=== PATIENT | male | born 1980 | race African-American/Black ===

== ENCOUNTER 2016-08-28 02:18 | Emergency (ER) | payer SELFPAY ==
[2016-08-28] MEDS ORDERED: DEXAMETHASONE SOD PHOS INJ 10 MG/1 ML VIAL IM ONE (04:12)
[2016-08-28] MEDS ORDERED: LISINOPRIL 10 MG TABLET PO ONE (04:13)
[2016-08-28] MEDS ORDERED: HYDROCHLOROTHIAZIDE 25 MG TABLET PO ONE (04:13)
--- NOTE | 2016-08-28 04:17 | ER Document Report ---
ED General - General Chief Complaint: Flu Symptoms Stated Complaint: HEADACHE Notes: Patient is a pleasant 36-year-old male who presents with complaint of nasal congestion, cough, sinus pressure. He says it's been ongoing for the most a week. He does have history of seasonal allergies and does take Claritin for this. He's had some chills but has not had a fever home. Vomiting or diarrhea. No history diabetes. Patient does have history of hypertension. He just switched to a new doctor. He has ran out of his blood pressure medications for last month. He is on lisinopril and hydrochlorothiazide. Lisinopril is 10 mg. No chest pain. No abdominal pain. No other complaints at this time. TRAVEL OUTSIDE OF THE [place] IN LAST 30 DAYS: No - Related Data Allergies/Adverse Reactions: Penicillins Allergy (Severe, Verified 02/10/14 11:51) Anaphylaxis Past Medical History - Social History Smoking Status: Never Smoker Chew tobacco use (# tins/day): No Frequency of alcohol use: Occasional Drug Abuse: None Family History: Reviewed & Not Pertinent Patient has suicidal ideation: No Patient has homicidal ideation: No - Past Medical History Cardiac Medical History: Reports: Hx Hypertension Denies: Hx Coronary Artery Disease, Hx Heart Attack Pulmonary Medical History: Reports: Hx Asthma Denies: Hx Bronchitis, Hx COPD, Hx Pneumonia Neurological Medical History: Denies: Hx Cerebrovascular Accident, Hx Seizures Renal/ Medical History: Denies: Hx Peritoneal Dialysis Musculoskeltal Medical History: Denies Hx Arthritis Past Surgical History: Reports: Hx Testicular Surgery, Hx Tonsillectomy - Immunizations Immunizations up to date: Yes Hx Diphtheria, Pertussis, Tetanus Vaccination: Yes Review of Systems - Review of Systems Notes: My Normal Review Basic REVIEW OF SYSTEMS: CONSTITUTIONAL : Denies fever, chills, or sweats. Denies recent illness. EENT: Nasal congestion. CARDIOVASCULAR: Denies chest pain. RESPIRATORY: Cough GASTROINTESTINAL: Denies abdominal pain. Denies nausea, vomiting, or diarrhea. Denies constipation. Last BM: MUSCULOSKELETAL: Denies neck or back pain or joint pain or swelling. SKIN: Denies rash or skin lesions.. NEUROLOGICAL: Denies altered mental status or loss of consciousness. Has a sinus headache. Denies weakness or paralysis or loss of use of either side. Denies problems with gait or speech. Denies sensory or motor loss. ALL OTHER SYSTEMS REVIEWED AND NEGATIVE. Physical Exam - Vital signs Vitals: Temp Pulse Resp BP Pulse Ox 98.2 F 80 18 162/101 H 96 08/28/16 02:08/28/16 02:08/28/16 02:08/28/16 02:08/28/16 02:29 - Notes Notes: General Appearance: Well nourished, alert, cooperative, no acute distress, no obvious discomfort. Well-appearing. Audible nasal congestion during exam. Vitals: reviewed, See vital signs table. Head: no swelling or tenderness to the head Eyes: PERRL, EOMI, Conjuctiva clear Mouth: No decreasd moisture Throat: No tonsillar inflammation, No airway obstruction, No lymphadenopathy Ears: Normal appearing Tympanic membranes bilaterally. Neck: Supple, no neck tenderness Lungs: No wheezing, No rales, No rhonci, No accessory muscle use, good air exchange bilaterally. Heart: Normal rate, Regular rythm, No murmur, no rub Abdomen: Normal BS, soft, No rigidity, No abdominal tenderness, No guarding, no rebound, no abdominal masses, no organomegaly Extremities: strength 5/5 in all extremities, good pulses in all extremities, no swelling or tenderness in the extremities, no edema. Skin: warm, dry, appropriate color, no rash Neuro: speech clear, oriented x 3, normal affect, responds appropriately to questions. Course - Vital Signs Vital signs: Temp Pulse Resp BP Pulse Ox 98.2 F 80 18 162/101 H 96 08/28/16 02:08/28/16 02:08/28/16 02:08/28/16 02:08/28/16 02:29 - Transfer of Care Notes: 08/28/16 04:21 Patient will be discharged home. He looks well. I will give him a shot of Decadron hopefully help with his congestion and sinus pressure. He is already on [id number] nasal decongestants. I will place him back on his high blood pressure medication. His lung clemente are clear. His vital signs are normal with exception of his hypertension. I feel he is safe to be discharged home. I encouraged him follow closely with his primary care doctor for evaluation. I encourage him to return to ER if has worsening of his symptoms. Patient agrees with plan will be discharged home. Dictation of this chart was performed using voice recognition software; therefore, there may be some unintended grammatical errors. Discharge - Discharge Clinical Impression: URI (upper respiratory infection) Qualifiers: URI type: unspecified URI Qualified Code(s): J06.9 - Acute upper respiratory infection, unspecified Hypertension Qualifiers: Hypertension type: essential hypertension Qualified Code(s): I10 - Essential ( primary) hypertension Condition: Good Disposition: HOME, SELF-CARE Additional Instructions: Please try inhaling steam at home. This will help break up congestion. We have given you a shot of steroids which usually will help with the inflammation and congestion in your sinuses. Please return to ER immediately if you have difficulty breathing, fevers, or feel that your symptoms are worsening. Forms: Special Work Note
[2016-08-28 04:34] VITALS: BP 158/114
== END 2016-08-28 04:34 | disposition home or self-care (01) ==
LOC: ER 02:18
DX: J06.9 Acute upper respiratory infection, unspecified (principal); I10 Essential (primary) hypertension; R51 Headache; R09.81 Nasal congestion; Z88.0 Allergy status to penicillin
CPT/HCPCS: 99283; 96372; 87804; J1100

== ENCOUNTER 2018-04-27 19:59 | Emergency (ER) | payer SELFPAY ==
[2018-04-27 20:12] VITALS: BP 178/103
[2018-04-27] MEDS ORDERED: HYDROCHLOROTHIAZIDE 12.5 MG TABLET PO ONE (21:03)
[2018-04-27] MEDS ORDERED: LISINOPRIL 10 MG TABLET PO ONE (21:03)
--- NOTE | 2018-04-27 21:05 | ER Document Report ---
ED ENT - General Chief Complaint: Sinus Congestion Stated Complaint: SINUS CONGESTION Time Seen by Provider: 04/27/18 20:47 Mode of Arrival: Ambulatory Information source: Patient Notes: 38-year-old male presented to ED for complaint of high blood pressure and cough and cold symptoms. He states he has not been taking his blood pressure for several months as he does not have insurance and has not been able to follow-up with a doctor to get a refill of her prescriptions. He states he takes lisinopril hydrochlorothiazide 20/12.5 daily. She is alert and oriented respirations regular and unlabored speaking in full sentences. He states he has been taking everything he could think of rqtw-kah-rmfrhva for his cough cold congestion but nothing seems to work. I have explained to him that he should not be taking most oqar-gus-ekmrnqk medications for cough and cold as these all elevate his blood pressure. TRAVEL OUTSIDE OF THE [place] IN LAST 30 DAYS: No - HPI Patient complains to provider of: Nose problem Onset: Last week Onset/Duration: Persistent Quality of pain: Achy Severity: Moderate Pain Level: 3 Context: Recent Illness Location of pain: Nose, Sinus Associated symptoms: Congestion, Cough, Headache, Runny nose, Sinus pain, Sinus drainage Similar symptoms previously: Yes Recently seen / treated by doctor: No - Related Data Allergies/Adverse Reactions: Penicillins Allergy (Severe, Verified 04/27/18 19:59) Anaphylaxis Past Medical History - General Information source: Patient - Social History Smoking Status: Current Some Day Smoker - 2-3 cigarettes 2 times a week Cigarette use (# per day): Yes Smoking Education Provided: Yes - 4 minutes Frequency of alcohol use: Social - 2-3 times a week Drug Abuse: None 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 Lives with: Friend Family History: Reviewed & Not Pertinent Patient has suicidal ideation: No Patient has homicidal ideation: No - Past Medical History Cardiac Medical History: Reports: Hx Hypertension Pulmonary Medical History: Reports: Hx Asthma EENT Medical History: Reports: None Neurological Medical History: Reports: None Endocrine Medical History: Reports: None Renal/ Medical History: Reports: None Malignancy Medical History: Reports None GI Medical History: Reports: None Musculoskeletal Medical History: Reports Hx Musculoskeletal Trauma Skin Medical History: Reports None Psychiatric Medical History: Reports: None Traumatic Medical History: Reports: Hx Fractures - Left arm Infectious Medical History: Reports: None Past Surgical History: Reports: Hx Adenoidectomy, Hx Orthopedic Surgery - Left arm, Hx Tonsillectomy - Immunizations Immunizations up to date: Yes Hx Diphtheria, Pertussis, Tetanus Vaccination: Yes Review of Systems - Review of Systems Notes: REVIEW OF SYSTEMS: CONSTITUTIONAL : Denies fever, chills, or sweats. Denies recent illness. EENT: Patient complains of runny nose congestion cough and irritated throat. Denies eye, ear, or mouth pain or symptoms. Denies throat, tongue, or mouth swelling or difficulty swallowing. CARDIOVASCULAR: Denies chest pain. Denies palpitations or racing or irregular heart beat. Denies ankle edema. RESPIRATORY: Patient states he has had cough cold congestion for about a week. Denies shortness of breath, difficulty breathing, or wheezing. GASTROINTESTINAL: Denies abdominal pain or distention. Denies nausea, vomiting , or diarrhea. Denies blood in vomitus, stools, or per rectum. Denies black, tarry stools. Denies constipation. GENITOURINARY: Denies difficulty urinating, painful urination, burning, frequency, blood in urine, or discharge. MUSCULOSKELETAL: Denies back or neck pain or stiffness. Denies joint pain or swelling. SKIN: Denies rash, lesions or sores. HEMATOLOGIC : Denies easy bruising or bleeding. LYMPHATIC: Denies swollen, enlarged glands. NEUROLOGICAL: Patient states that his cough and cold was given him a headache. Denies confusion or altered mental status. Denies passing out or loss of consciousness. Denies dizziness or lightheadedness. Denies weakness or paralysis or loss of use of either side. Denies problems with gait or speech. Denies sensory loss, numbness, or tingling. Denies seizures. PSYCHIATRIC: Denies anxiety or stress. Denies depression, suicidal ideation, or homicidal ideation. ALL OTHER SYSTEMS REVIEWED AND NEGATIVE. Dictation was performed using [employer] voice recognition software PHYSICAL EXAMINATION: GENERAL: Well-appearing, well-nourished and in no acute distress. Patient has an elevated blood pressure which is chronic. HEAD: Atraumatic, normocephalic. EYES: Pupils equal round and reactive to light, extraocular movements intact, sclera anicteric, conjunctiva are normal. ENT: Nasal mucosa erythematous swollen greenish yellow drainage. Patient also has postnasal drip. No redness swelling or exudate to the tonsils. Moist mucous membranes. NECK: Normal range of motion, supple without lymphadenopathy LUNGS: Breath sounds clear to auscultation bilaterally and equal. No wheezes rales or rhonchi. Patient has a nonproductive cough HEART: Regular rate and rhythm without murmurs ABDOMEN: Soft, nontender, nondistended abdomen. No guarding, no rebound. No masses appreciated. Musculoskeletal: Normal range of motion, no pitting or edema. No cyanosis. NEUROLOGICAL: Cranial nerves grossly intact. Normal speech, normal gait. Normal sensory, motor exams PSYCH: Normal mood, normal affect. SKIN: Warm, Dry, normal turgor, no rashes or lesions noted. Physical Exam - Vital signs Vitals: Temp Pulse Resp BP Pulse Ox 97.7 F 101 H 18 178/103 H 95 04/27/18 20:10 04/27/18 20:10 04/27/18 20:10 04/27/18 20:10 04/27/18 20:10 Course - Re-evaluation Re-evalutation: 04/28/18 02:22 Patient was treated with lisinopril/hydrochlorothiazide 06/06.5 for his elevated blood pressure. He states he used to be on this and he could not afford to go to the doctor to get refills of his prescription. He states he supposed to take this and he can get his insurance again in the beginning of May and plans to go back to his doctor but he cannot go back until May. 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 Patient was educated on use of mjew-nxm-dsixoea cold medications with elevated blood pressure and that this will actually make his blood pressure higher. Patient was instructed on what he can and cannot use for his cough and cold symptoms. Patient verbalized understanding and agreement with treatment plan. - Vital Signs Vital signs: Temp Pulse Resp BP Pulse Ox 97.7 F 101 H 18 178/103 H 95 04/27/18 20:10 04/27/18 20:10 04/27/18 20:10 04/27/18 20:10 04/27/18 20:10 Discharge - Discharge Clinical Impression: URI (upper respiratory infection) Qualifiers: URI type: unspecified URI Qualified Code(s): J06.9 - Acute upper respiratory infection, unspecified Condition: Stable Disposition: HOME, SELF-CARE Additional Instructions: UPPER RESPIRATORY ILLNESS: You have a viral infection of the respiratory passages -- a "cold." This common infection causes nasal congestion, drainage, and often sore throat and cough. It is highly contagious. The disease usually lasts about 10 to 14 days. There is no "cure" for the viral infection -- it must run its course. If there is a complication, such as bacterial infection in the nose, sinuses, middle ear, or bronchial tubes, antibiotics may be required. The antibiotics won't affect the virus. Drink plenty of fluids. A humidifier may help. An expectorant medication or decongestant may make you more comfortable. Use acetaminophen or ibuprofen for fever or aches. See the doctor if fever persists over two days, if there is any significant worsening of your symptoms, or if you simply fail to improve as expected. USE OF ACETAMINOPHEN (Tylenol): Acetaminophen may be taken for pain relief or fever control. It's much safer than aspirin, offering a wider range of "safe" dosages. It is safe during . Some brand names are Tylenol, Panadol, Datril, Anacin 3, Tempra, and Liquiprin. Acetaminophen can be repeated every four hours. The following are maximum recommended dosages: >89 pounds or adults 650 mg to 900 mg Acetaminophen can be repeated every four hours. Maximum dose not to exceed 4000 mg a day. The only gnbf-cnq-vrmfidm cold medicines that you should be using are Coricidin HB, Flonase, saline spray, and salt and soda gargles. Rest of the cold medications will increase your blood pressure. ALMA Inhibitor Medication "ALMA inhibitor" drugs are used to lower high blood pressure (or to reduce the "work" of the heart in patients with heart failure). These drugs block an enzyme that makes your blood vessels constrict and makes you retain salt. The result is lower blood pressure. ALMA inhibitors cause few side effects. The most common side effect is a dry nagging cough. Occasionally, lightheadedness may occur while you get used to the medicine. Some patients may retain extra potassium (this is a problem if you are taking potassium supplements, potassium-containing salt substitutes, or a potassium-retaining drug such as triamterene, spironolactone, or amiloride). If you are taking lithium, the lithium level must be rechecked after starting an ALMA inhibitor. ALMA inhibitors should NOT be used during . Contact the doctor or return if you develop severe lightheadedness, wheeze, weakness, palpitations or other new symptoms. Hydrochlorothiazide Hydrochlorothiazide is a diuretic medication. Diuretics are often called "water pills." The medicine flushes excess salt and water from the body. Diuretics are used for fluid retention (such as heart failure, cirrhosis, or lung disease) and for blood pressure control. Often hydrochlorothiazide is combined with other medicines in the same pill. Most patients prefer to take the medicine in the morning. Hydrochlorothiazide makes extra urine, which can be a problem if you take the pill at night. Diuretics make you lose potassium. Sometimes a good diet with plenty of fruit is enough to replace it. Sometimes a potassium supplement is necessary. Or, hydrochlorothiazide may be combined with medicines that prevent potassium loss. We usually recommend a blood potassium test in a few weeks. Contact your doctor if you develop extreme fatigue, muscle weakness, lethargy, confusion, or palpitations. SMOKING: If you smoke, you should stop smoking. The tar and chemicals in cigarette smoke are harmful. Smoking has been shown to cause: emphysema chronic bronchitis lung cancer mouth and throat cancer stomach and pancreas cancer premature aging defects In addition, smoking increases ear and lung infections in children of smokers. FOLLOW-UP CARE: If you have been referred to a physician for follow-up care, call the physician s office for an appointment as you were instructed or within the next two days. If you experience worsening or a significant change in your symptoms, notify the physician immediately or return to the Emergency Department at any time for re-evaluation. Prescriptions: Lisinopril/Hydrochlorothiazide [Lisinopril-Hctz 20-12.5 mg Tab] 1 each PO DAILY #30 tablet Forms: Elevated Blood Pressure, Smoking Cessation Education, Return to Work Referrals: NICO ESCAMILLA CRNP [COMMUNITY BASED STAFF] - Follow up as needed
== END 2018-04-27 21:32 | disposition home or self-care (01) ==
LOC: ER 19:59
DX: J06.9 Acute upper respiratory infection, unspecified (principal); R51 Headache; F17.210 Nicotine dependence, cigarettes, uncomplicated; I10 Essential (primary) hypertension; Z88.0 Allergy status to penicillin
CPT/HCPCS: 99283

== ENCOUNTER 2018-08-30 06:32 | Emergency (ER) | payer SELFPAY ==
--- NOTE | 2018-08-30 08:29 | RADIOLOGY REPORT (SQ) ---
EXAM DESCRIPTION: ANKLE LEFT AP/LATERAL COMPLETED DATE/TIME: 08/30/2018 7:41 am REASON FOR STUDY: injury COMPARISON: None. NUMBER OF VIEWS: Three views. TECHNIQUE: AP, lateral, and oblique radiographic images acquired of the left ankle. LIMITATIONS: None. FINDINGS: MINERALIZATION: Normal. BONES: No acute fracture or dislocation. No worrisome bone lesions. JOINTS: No effusions. SOFT TISSUES:Soft tissue swelling. No foreign body. OTHER: No other significant finding. IMPRESSION: 1. Soft tissue swelling. Clinically correlate. 2. No acute osseous findings. TECHNICAL DOCUMENTATION: JOB ID: [id number] [employer]- All Rights Reserved Reading location - IP/workstation name: [email or web address]
[2018-08-30] MEDS ORDERED: AMLODIPINE BESYLATE 10 MG TABLET PO ONE (09:45)
--- NOTE | 2018-08-30 09:51 | ER Document Report ---
ED General - General Chief Complaint: Ankle Injury Stated Complaint: LEFT ANKLE Time Seen by Provider: 08/30/18 08:50 Mode of Arrival: Ambulatory Information source: Patient Notes: Patient is a 38 year old male presenting to the emergency department with ongoing pain second to a left eversion ankle sprain that happened last Sunday. Patient states that he has had ankle sprains in the past but that they have never been this bad. He states that he has been icing his ankle and taking 600mg of Motrin q6 hours for symptom relief. He also states that he is in need of a blood pressure medication refill. TRAVEL OUTSIDE OF THE [place] IN LAST 30 DAYS: No - HPI Onset: Last week Onset/Duration: Persistent Associated symptoms: None - Related Data Allergies/Adverse Reactions: Penicillins Allergy (Severe, Verified 04/27/18 19:59) Anaphylaxis bee venom protein (honey bee) Allergy (Verified 08/30/18 06:33) Past Medical History - General Information source: Patient - Social History Smoking Status: Current Some Day Smoker Chew tobacco use (# tins/day): No Frequency of alcohol use: Occasional Drug Abuse: None Family History: Reviewed & Not Pertinent Patient has suicidal ideation: No Patient has homicidal ideation: No - Past Medical History Cardiac Medical History: Reports: Hx Hypertension Denies: Hx Coronary Artery Disease, Hx Heart Attack Pulmonary Medical History: Reports: Hx Asthma Denies: Hx Bronchitis, Hx COPD, Hx Pneumonia Neurological Medical History: Denies: Hx Cerebrovascular Accident, Hx Seizures Renal/ Medical History: Denies: Hx Peritoneal Dialysis Musculoskeletal Medical History: Denies Hx Arthritis, Reports Hx Musculoskeletal Trauma Traumatic Medical History: Reports: Hx Fractures - Left arm Past Surgical History: Reports: Hx Adenoidectomy, Hx Orthopedic Surgery - Left arm, Hx Testicular Surgery, Hx Tonsillectomy - Immunizations Immunizations up to date: Yes Hx Diphtheria, Pertussis, Tetanus Vaccination: Yes Review of Systems - Review of Systems Constitutional: No symptoms reported EENT: No symptoms reported Cardiovascular: No symptoms reported Respiratory: No symptoms reported Gastrointestinal: No symptoms reported Genitourinary: No symptoms reported Male Genitourinary: No symptoms reported Musculoskeletal: Joint pain Skin: No symptoms reported Hematologic/Lymphatic: No symptoms reported Neurological/Psychological: No symptoms reported -: Yes All other systems reviewed and negative Physical Exam - Vital signs Vitals: Temp Pulse Resp BP Pulse Ox 98.2 F 82 18 181/126 H 97 08/30/18 06:37 08/30/18 06:37 08/30/18 06:37 08/30/18 06:37 08/30/18 06:37 Interpretation: Normal - General General appearance: Appears well, Alert - HEENT Head: Normocephalic, Atraumatic Eyes: Normal Pupils: PERRL - Respiratory Respiratory status: No respiratory distress Chest status: Nontender Breath sounds: Normal Chest palpation: Normal - Cardiovascular Rhythm: Regular Heart sounds: Normal auscultation Murmur: No - Abdominal Inspection: Normal Distension: No distension Bowel sounds: Normal Tenderness: Nontender Organomegaly: No organomegaly - Back Back: Normal, Nontender - Extremities General upper extremity: Normal inspection, Nontender, Normal color, Normal ROM, Normal temperature General lower extremity: Normal temperature, Other. No: Tender - Right ankle unaffected. Patient has left ankle diffuse swelling of the midfoot and of the ankle. Patient does have tenderness to palpation of the medial malleolus and lateral malleolus. Capillary refill is intact. - Neurological Neuro grossly intact: Yes Cognition: Normal Orientation: AAOx4 Sonja Coma Scale Eye Opening: Spontaneous Sonja Coma Scale Verbal: Oriented Sonja Coma Scale Motor: Obeys Commands [place] Coma Scale Total: 15 Speech: Normal Motor strength normal: LUE, RUE, LLE, RLE Sensory: Normal - Psychological Associated symptoms: Normal affect, Normal mood - Skin Skin Temperature: Warm Skin Moisture: Dry Skin Color: Normal Course - Re-evaluation Re-evalutation: 08/30/18 12:13 Patient looks to have a significant ankle sprain. Will place patient in Elio wrap will give crutches will give pain control patient was to follow-up with orthopedics. Patient's blood pressure will be addressed as well. Did call the pharmacy states patient has not picked up any medications in 2 years however patient was on amlodipine 10 mg and Diovan. We will to restart the patient on his amlodipine. - Vital Signs Vital signs: Temp Pulse Resp BP Pulse Ox 97.6 F 81 14 177/117 H 97 08/30/18 09:58 08/30/18 09:58 08/30/18 09:58 08/30/18 09:58 08/30/18 09:58 Discharge - Discharge Clinical Impression: Ankle pain, left Qualifiers: Chronicity: acute Qualified Code(s): M25.572 - Pain in left ankle and joints of left foot Hypertension Qualifiers: Hypertension type: unspecified Qualified Code(s): I10 - Essential (primary) hypertension Condition: Good Disposition: HOME, SELF-CARE Instructions: Elio Wrap ([facility]), Ankle Stirrup Splint ([facility]), Ice & Elevation ([facility]), Sprained Ankle ([facility]) Additional Instructions: Your x-ray today does not show any signs of fracture your physical examination is consistent with a significant ankle sprain. I recommend Elio wrap at this time and crutches I recommend no weight R big toe bearing weight as far as ambulation he can increase this in the next few days as the pain decreases. I would recommend following up with orthopedics. Please elevate your leg as often as he can above the level of the heart. Take Tylenol Motrin for pain control take morphine for severe pain. Prescriptions: Ibuprofen [Motrin 600 mg Tablet] 600 mg PO Q8HP PRN #21 tablet PRN Reason: Amlodipine Besylate [Norvasc 10 mg Tablet] 10 mg PO DAILY #30 tablet Morphine Sulfate [Morphine Ir 15 Mg Tablet] 15 mg PO TID #20 tablet Forms: Return to Work, Elevated Blood Pressure Referrals: PAVITHRA MARTINEZ DO [ACTIVE STAFF] - Follow up as needed
[2018-08-30 10:15] VITALS: BP 177/117
== END 2018-08-30 10:15 | disposition home or self-care (01) ==
LOC: ER 06:32
DX: M25.572 Pain in left ankle and joints of left foot (principal); I10 Essential (primary) hypertension; Z79.899 Other long term (current) drug therapy; F17.200 Nicotine dependence, unspecified, uncomplicated
CPT/HCPCS: 99283

== ENCOUNTER 2019-03-05 22:41 | Emergency (ER) | payer SELFPAY ==
--- NOTE | 2019-03-06 00:46 | ER Document Report ---
HPI - HPI Patient complains to provider of: cough Time Seen by Provider: 03/06/19 00:15 Onset: Yesterday Onset/Duration: Gradual, Persistent, Waxing and waning Quality of pain: No pain Severity: Mild Pain Level: 2 Context: 38 yr old male pt, with the listed pmh, here for uri sx of mild nonproductive cough and some wheezing x 2 days. also requests a refill of his albuterol inhaler and of his amlodipine 10mg qd, has been on these for a long time and tolerated them well with no complications. hasn't f/u with a pcp and has been out of his bp med for many months. just stated a new job and once his insurance kicks in, hopefully in the next month, he will establish care then. he continues to smoke. denies htn sx. no prior cardiac hx or fam hx of cardiac dz or sudden at a young age. no cp or sob. states before when this has happened he got a neb and felt better and was dc'd. he is requesting the same again. no recent abx or steroids. no hx of diabetes. no trouble breathing, swallowing or handling secretions. hasn't taken anything else for his sx. hasn't sought help until now. no other associated sx. - ROS Systems Reviewed and Negative: Yes All other systems reviewed and negative - to include 10 systems, unless mentioned in the hpi Past Medical History - General Information source: Patient - Social History Smoking Status: Current Every Day Smoker Frequency of alcohol use: unknown Drug Abuse: Marijuana Lives with: Family Family History: Reviewed & Not Pertinent Patient has suicidal ideation: No Patient has homicidal ideation: No - Past Medical History Cardiac Medical History: Reports: Hx Hypertension - not compliant with meds. hasn't f/u or taken meds in many months Denies: Hx Coronary Artery Disease, Hx Heart Attack Pulmonary Medical History: Reports: Hx Asthma - mild, seasonal, controlled when he uses his inhaler which he is out of Denies: Hx Pneumonia Neurological Medical History: Denies: Hx Cerebrovascular Accident, Hx Seizures Endocrine Medical History: Denies: Hx Diabetes Mellitus Type 1, Hx Diabetes Mellitus Type 2 Renal/ Medical History: Denies: Hx End Stage Renal Disease, Hx Peritoneal Dialysis Musculoskeletal Medical History: Denies Hx Arthritis Traumatic Medical History: Reports: Hx Fractures - Left arm Infectious Medical History: Reports: None Past Surgical History: Reports: Hx Adenoidectomy, Hx Orthopedic Surgery - Left arm, Hx Testicular Surgery, Hx Tonsillectomy - Immunizations Immunizations up to date: Yes Hx Diphtheria, Pertussis, Tetanus Vaccination: Yes Vertical Provider Document - CONSTITUTIONAL Agree With Documented VS: Yes Exam Limitations: No Limitations General Appearance: WD/WN Notes: >>>> PHYSICAL_EXAM: GENERAL_APPEARANCE: well_nourished, alert, cooperative, no_acute_distress, no_obvious_discomfort. pleasant, young black male, smells of marijuana along with his female acquaintance in the room, both laughing and joking around, smiling, speaking in full sentences, in no sign of pain or resp distress, VITALS: reviewed, see vital signs table. HEAD: no_swelling\tenderness on the head. normocephalic. atraumatic. no oden signs. no raccoons eyes. EARS: canals_clear_bilat, TMs_clear. EYES: PERRL, EOMI, conjunctiva_clear. NOSE: no_nasal_discharge. MOUTH: (-)decreased moisture. THROAT: no pharyngeal erythema/edema, s/p remote T and A, no_airway_obstruction. no_lymphadenopathy, no drooling, tripoding, voice change, or stridor, no tongue or lip swelling. NECK: supple, no_neck_tenderness, full rom. full strength. no meningeal signs. BACK: no_back_tenderness. CHEST_WALL: no_chest_tenderness. no overlying skin changes LUNGS: mild diffuse exp wheezes (-)accessory muscle use, good air exchange bilateral. HEART: normal_rate, normal_rhythm, ABDOMEN: normal_BS, soft, no_abd_tenderness, (-)guarding, (-)rebound, no distension or peritoneal signs. no cva ttp EXTREMITIES: strength 5/5 in all_extremities, good pulses in all_extremities, no_swelling\tenderness in the extremities, no_edema. full rom. normal gait. good pulses. brisk cap refill. good hand lace pinner. neg forest sign NEURO: motor and sensation intact, cranial nerves 2-12 intact, SKIN: warm, dry, good_color, no_rash. MENTAL_STATUS: speech_clear, oriented_X_3, normal_affect, responds_appropriately to questions. - INFECTION CONTROL TRAVEL OUTSIDE OF THE [place] IN LAST 30 DAYS: No Course - Re-evaluation Re-evalutation: pt here for likely acute bronchitis x 2 days-sx likely viral. lung sounds normalized after a duoneb here. he is also requesting a refill of his albuterol inhaler and amlodipine which i did write for him along with loreta smiley. he denies htn sx. bp a little elevated here today, advised pt of this, he denies any htn sx, and i advised to f/u with pcp for a bp recheck as he may need his bp meds adjusted and blood work. cxr neg per rad and reviewed by myself. no blood work was done today as pt is well appearing and low risk and sx likely viral. advised sx care. advised smoking cessation. he is well appearing. nontoxic. normal o2 sats on ra. no tachycardia. he is perc neg. no cp or sob. ambulates normally and is joking and laughing with significant other at bedside and well appearing. advised to f/u with pcp/pulm in 1-2 days. return for any worsening symptoms. vss. well appearing. satting well on ra. neurononfocal. pt understands and agrees to plan. On reexam, pt improved with tx listed. remained stable. nontoxic. well appearing. tolerating po. requesting to go home. lungs ctab on reexam. vss. normal o2 sats on ra. case discussed with ER Attending, Dr. Schmid, who directed and agrees with plan of care and advised no further workup indicated at this time and pt is stable for dc home with close f/u with pcp/specialist. Documentation achieved through voice recording which may lead to some occasional accidental typographical errors. Extensive efforts have been made to proof read documentation to make sure these are the least as possible. Category Date Time Status Vital Signs (ED) STAT Care 03/06/19 00:46 Active CHEST 2 VIEWS [RAD] Stat Exams 03/06/19 00:45 Completed Albuterol Sulfate [Ventolin Hfa 8 gm Mdi (1 Mdi/ER Disp Med 03/06/19 02:42 Discontinued )] 2 puff IH ASDIR PRN Ipratropium/Albuterol Sulfate [Duoneb 3 ml Ampul] Med 03/06/19 01:30 Discontinued 3 ml NEB NOW ONE Nebulizer Therapy Routine [RESPCARE] NOW Ther 03/06/19 01:30 Active - Vital Signs Vital signs: Temp Pulse Resp BP Pulse Ox 98.3 F 100 16 176/100 H 95 03/05/19 23:00 03/05/19 23:00 03/05/19 23:00 03/05/19 23:00 03/05/19 23:00 Temp Pulse Resp BP Pulse Ox 03/06/19 03:04 97.7 F 92 18 159/103 H 97 03/05/19 23:00 98.3 F 100 16 176/100 H 95 - Diagnostic Test Radiology reviewed: Image reviewed, Reports reviewed Radiology results interpreted by me: Chest X-Ray 03/06/19 00:45 IMPRESSION: No acute findings. No focal lung consolidation. Discharge - Discharge Clinical Impression: Bronchitis, Medication refill, Non compliance w medication regimen High blood pressure Qualifiers: Hypertension type: unspecified Qualified Code(s): I10 - Essential (primary) hypertension Condition: Good Disposition: HOME, SELF-CARE Instructions: Bronchitis ([facility]), High Blood Pressure ([facility]) Additional Instructions: Follow-up with PCP in 1 to 2 days. Return for any worsening symptoms. tylenol as needed for any pain or fever. take the medication as prescribed. stop smoking. have pcp recheck your blood pressure as it was elevated today. you may need your blood pressure medication adjusted and labs rechecked, keep a log of your blood pressures to take to your pcp for reference. Prescriptions: Benzonatate [Tessalon Perle 100 mg Capsule] 100 mg PO Q8HP PRN #30 cap PRN Reason: Amlodipine Besylate [Norvasc 10 mg Tablet] 10 mg PO DAILY #30 tablet Albuterol Sulfate [Proair HFA Inhalation Aerosol 8.5 gm MDI] 2 puff IH Q4H PRN #1 mdi PRN Reason: Forms: Return to Work
[2019-03-06] MEDS ORDERED: IPRATROPIUM/ALBUTEROL 0.5-2.5 MG/3 ML AMPUL NEB ONE (01:30)
--- NOTE | 2019-03-06 01:50 | RADIOLOGY REPORT (SQ) ---
EXAM DESCRIPTION: XR CHEST 2 VIEWS COMPLETED DATE/TME: 03/06/2019 00:45 CLINICAL HISTORY: 38 years, Male, cough Comparison: None FINDINGS: No focal lung consolidation. No pleural effusion. No pneumothorax. Cardiac and mediastinal silhouette is unremarkable. No acute osseous abnormality. Soft tissues are unremarkable. IMPRESSION: No acute findings. No focal lung consolidation.
[2019-03-06] MEDS ORDERED: ALBUTEROL SULFATE HFA (90 MCG/PUFF) 8 GM MDI (1 MDI/ER DISP) IH PRN (02:42)
[2019-03-06 03:06] VITALS: BP 159/103
== END 2019-03-06 03:06 | disposition home or self-care (01) ==
LOC: ER 22:41
DX: Z76.0 Encounter for issue of repeat prescription (principal); J45.909 Unspecified asthma, uncomplicated; I10 Essential (primary) hypertension; Z91.14 Patient's other noncompliance with medication regimen; R05 Cough; Z79.899 Other long term (current) drug therapy; F17.200 Nicotine dependence, unspecified, uncomplicated
CPT/HCPCS: 94640; 99283; 71046; J3490; J7620